=== PATIENT | male | born 1940 | race Caucasian/White ===

== ENCOUNTER 2022-04-07 14:48 | Emergency (ER) | payer OTHER, MEDICARE ==
[~2022-04-07] VITALS: Ht 177.8 cm; Wt 75.9 kg
[~2022-04-07 14:48] MED LIST: CARV3.12 PO
[2022-04-07 14:58] VITALS: BP 152/71
[2022-04-07 15:31] LABS: BASOPHILS # (AUTO) 0.1 X10'3 (0-0.2); BASOPHILS % (AUTO) 0.8 % (0-1); EOSINOPHILS # (AUTO) 0.2 X10'3 (0-0.9); EOSINOPHILS % (AUTO) 2.4 % (0-6); HEMATOCRIT 34.8 % (42.0-52.0); HEMOGLOBIN 11.7 g/dl (14.0-17.9); LYMPHOCYTES # (AUTO) 1.9 X10'3 (1.1-4.8); LYMPHOCYTES % (AUTO) 28.1 % (21-51); MEAN CORPUSCULAR HEMOGLOBIN 30.2 PG (27.0-31.0); MEAN CORPUSCULAR HGB CONC 33.7 g/dL (33.0-36.5); MEAN CORPUSCULAR VOLUME 89.6 FL (78-98); MEAN PLATELET VOLUME 6.7 FL (7.4-10.4); MONOCYTES # (AUTO) 0.8 X10'3 (0-0.9); MONOCYTES % (AUTO) 11.7 % (2-12); NEUTROPHILS # (AUTO) 3.8 X10'3 (1.8-7.7); PLATELET COUNT 242 X10'3 (140-440); RED BLOOD COUNT 3.88 X10'6 (4.70-6.10); RED CELL DISTRIBUTION WIDTH 14.7 % (11.5-14.5); WHITE BLOOD COUNT 6.6 X10'3 (4.5-11.0)
[2022-04-07 15:42] LABS: ALANINE AMINOTRANSFERASE 9 U/L (12-78); ALBUMIN 3.6 G/DL (3.4-5.0); ALBUMIN/GLOBULIN RATIO 0.9 (1.1-1.5); ALKALINE PHOSPHATASE 134 IU/L (46-116); ANION GAP 12 (8-16); ASPARTATE AMINO TRANSFERASE 17 U/L (10-37); BILIRUBIN,TOTAL 0.7 MG/DL (0.1-1.0); BLOOD UREA NITROGEN 13 MG/DL (7-18); BUN/CREATININE RATIO 13.7 (5.4-32.0); CALCIUM 8.7 MG/DL (8.5-10.1); CHLORIDE 105 MMOL/L (99-107); CREATININE 0.95 MG/DL (0.60-1.10); GLUCOSE 111 MG/DL (70-104); LIPASE 80 U/L (73-393); POTASSIUM 3.5 MMOL/L (3.5-5.1); SODIUM 141 MMOL/L (135-145); TOTAL CARBON DIOXIDE 23.8 MMOL/L (24-32); TOTAL PROTEIN 7.7 G/DL (6.4-8.2); eGFR 76 ML/MIN
[2022-04-07 16:16] LABS: CLARITY,URINE CLEAR (Clear); COLOR,URINE YELLOW (Yellow); GLUCOSE, URINE NEGATIVE (Neg); KETONES,URINE NEGATIVE (Neg); LEUKOCYTE ESTERASE ,URINE NEGATIVE (Neg); NITRITES, URINE NEGATIVE (Neg); OCCULT BLOOD,URINE MODERATE (Neg); PROTEIN,URINE NEGATIVE (Neg); UROBILINOGEN,URINE 0.2 E.U/dL (0.2-1.0)
[2022-04-07 16:32] LABS: UA COLLECTION TYPE NON-SPECIFIED
[2022-04-07 16:45] LABS: BACTERIA,URINE NONE SEEN /HPF (Neg); SQUAMOUS EPITHELIAL CELL,UR NONE SEEN /LPF (FEW); WBC,URINE NONE SEEN /HPF (0-4)
== END 2022-04-07 17:20 | disposition left against medical advice (07) ==
LOC: ER 14:49
DX: R10.32 Left lower quadrant pain (principal); R19.7 Diarrhea, unspecified; Z53.21 Procedure and treatment not carried out due to patient leaving prior to being seen by health care provider
CPT/HCPCS: 36415; 80053; 81001; 83690; 85025

== ENCOUNTER 2022-06-24 12:19 | Emergency (ER) | payer OTHER, MEDICARE ==
[~2022-06-24] VITALS: Ht 177.8 cm; Wt 75.9 kg
[2022-06-24 12:49] LABS: BASOPHILS # (AUTO) 0.1 X10'3 (0-0.2); BASOPHILS % (AUTO) 0.6 % (0-1); EOSINOPHILS # (AUTO) 0.2 X10'3 (0-0.9); EOSINOPHILS % (AUTO) 2.3 % (0-6); HEMATOCRIT 29.6 % (42.0-52.0); HEMOGLOBIN 9.9 g/dl (14.0-17.9); LYMPHOCYTES # (AUTO) 2.1 X10'3 (1.1-4.8); LYMPHOCYTES % (AUTO) 23.4 % (21-51); MEAN CORPUSCULAR HEMOGLOBIN 30.6 PG (27.0-31.0); MEAN CORPUSCULAR HGB CONC 33.3 g/dL (33.0-36.5); MEAN CORPUSCULAR VOLUME 91.8 FL (78-98); MEAN PLATELET VOLUME 6.2 FL (7.4-10.4); MONOCYTES # (AUTO) 0.8 X10'3 (0-0.9); MONOCYTES % (AUTO) 9.4 % (2-12); NEUTROPHILS # (AUTO) 5.8 X10'3 (1.8-7.7); NEUTROPHILS % (AUTO) 64.3 % (42-75); PLATELET COUNT 255 X10'3 (140-440); RED BLOOD COUNT 3.22 X10'6 (4.70-6.10); RED CELL DISTRIBUTION WIDTH 15.6 % (11.5-14.5)
[2022-06-24 13:08] LABS: ALANINE AMINOTRANSFERASE 15 U/L (12-78); ALBUMIN 3.4 G/DL (3.4-5.0); ALKALINE PHOSPHATASE 111 IU/L (46-116); ANION GAP 9 (8-16); ASPARTATE AMINO TRANSFERASE 13 U/L (10-37); BILIRUBIN,TOTAL 0.6 MG/DL (0.1-1.0); BLOOD UREA NITROGEN 13 MG/DL (7-18); BUN/CREATININE RATIO 12.4 (5.4-32.0); CALCIUM 8.3 MG/DL (8.5-10.1); CHLORIDE 102 MMOL/L (99-107); CREATININE 1.05 MG/DL (0.60-1.10); GLUCOSE 86 MG/DL (70-104); POTASSIUM 3.5 MMOL/L (3.5-5.1); SODIUM 139 MMOL/L (135-145); TOTAL PROTEIN 6.9 G/DL (6.4-8.2); eGFR 68 ML/MIN
--- NOTE | 2022-06-24 19:39 | NUR ---
Patient received AAOx4 present at bedside. Patient denies acute distress. Labs drawn and sent to lab; will continue with this plan of care.
[2022-06-24 21:06] LABS: HEMATOCRIT 27.4 % (42.0-52.0); HEMOGLOBIN 9.2 g/dl (14.0-17.9); MEAN CORPUSCULAR HEMOGLOBIN 30.5 PG (27.0-31.0); MEAN CORPUSCULAR HGB CONC 33.6 g/dL (33.0-36.5); MEAN CORPUSCULAR VOLUME 90.6 FL (78-98); MEAN PLATELET VOLUME 6.5 FL (7.4-10.4); PLATELET COUNT 239 X10'3 (140-440); RED BLOOD COUNT 3.02 X10'6 (4.70-6.10); RED CELL DISTRIBUTION WIDTH 15.4 % (11.5-14.5)
[2022-06-24 21:43] VITALS: BP 173/79
== END 2022-06-24 22:04 | disposition home or self-care (01) ==
LOC: ER 12:19
DX: D64.9 Anemia, unspecified (principal); K92.1 Melena; I10 Essential (primary) hypertension; E11.9 Type 2 diabetes mellitus without complications; Z90.49 Acquired absence of other specified parts of digestive tract
CPT/HCPCS: 36415; 74176; 80053; 85025; 85027; 86885; 86900; 86901; 93005; 99285

== ENCOUNTER 2022-07-30 05:19 | Inpatient (IN) | payer MEDICARE, OTHER ==
[2022-07-25 13:57] LABS: BASOPHILS % (AUTO) 0.7 % (0-1); EOSINOPHILS # (AUTO) 0.1 X10'3 (0-0.9); LYMPHOCYTES # (AUTO) 0.9 X10'3 (1.1-4.8); LYMPHOCYTES % (AUTO) 15.3 % (21-51); MEAN CORPUSCULAR HEMOGLOBIN 29.9 PG (27.0-31.0); MEAN CORPUSCULAR HGB CONC 32.7 g/dL (33.0-36.5); MEAN CORPUSCULAR VOLUME 91.5 FL (78-98); MEAN PLATELET VOLUME 6.9 FL (7.4-10.4); MONOCYTES # (AUTO) 0.6 X10'3 (0-0.9); MONOCYTES % (AUTO) 9.6 % (2-12); NEUTROPHILS # (AUTO) 4.6 X10'3 (1.8-7.7); NEUTROPHILS % (AUTO) 73.4 % (42-75); PRE OP HEMATOCRIT 33.5 % (42.0-52.0); PRE OP PLATELET COUNT 227 X10'3 (140-440); RED BLOOD COUNT 3.66 X10'6 (4.70-6.10); RED CELL DISTRIBUTION WIDTH 15.7 % (11.5-14.5)
[2022-07-25 14:04] LABS: PRE OP PROTIME 10.5 SECONDS (9.0-12.0)
[2022-07-25 14:05] LABS: ALBUMIN 3.7 G/DL (3.4-5.0); ALBUMIN/GLOBULIN RATIO 1.1 (1.1-1.5); ALKALINE PHOSPHATASE 125 IU/L (46-116); BLOOD UREA NITROGEN 13 MG/DL (7-18); BUN/CREATININE RATIO 12.4 (5.4-32.0); CALCIUM 8.7 MG/DL (8.5-10.1); CHLORIDE 100 MMOL/L (99-107); CREATININE 1.05 MG/DL (0.60-1.10); PRE OP ALT 15 U/L (30-65); PRE OP ANION GAP 5 (8-16); PRE OP AST 10 U/L (10-37); PRE OP BILIRUB, TOTAL 0.9 MG/DL (0.0-1.0); PRE OP GLUCOSE 108 MG/DL (70-104); PRE OP POTASSIUM 3.4 MMOL/L (3.4-5.1); PRE OP SODIUM 135 MMOL/L (135-145); TOTAL CARBON DIOXIDE 30.3 MMOL/L (24-32); TOTAL PROTEIN 7.2 G/DL (6.4-8.2); eGFR 68 ML/MIN
[2022-07-25 14:09] LABS: CLARITY,URINE CLEAR (Clear); COLOR,URINE YELLOW (Yellow); GLUCOSE, URINE NEGATIVE (Neg); KETONES,URINE NEGATIVE (Neg); LEUKOCYTE ESTERASE ,URINE NEGATIVE (Neg); NITRITES, URINE NEGATIVE (Neg); OCCULT BLOOD,URINE MODERATE (Neg); PROTEIN,URINE 30 mg/dl (Neg); UROBILINOGEN,URINE 0.2 E.U/dL (0.2-1.0)
[2022-07-25 14:12] LABS: UA COLLECTION TYPE CLN CATCH MIDSTREAM
[2022-07-25 14:12] LABS: PRE OP HEMOGLOBIN 10.9 g/dL (14.0-17.9)
[2022-07-25 14:18] LABS: BACTERIA,URINE NONE SEEN /HPF (Neg); MUCUS STRANDS NONE SEEN /LPF (Neg); SQUAMOUS EPITHELIAL CELL,UR NONE SEEN /LPF (FEW); WBC,URINE NONE SEEN /HPF (0-4)
[~2022-07-30] VITALS: Ht 177.8 cm; Wt 80.9 kg
[2022-07-30] VITALS (33 sets, daily range): BP systolic 110–169; BP diastolic 57–84
[~2022-07-30 05:19] MED LIST changes: +ASPI-529 PO; -CARV3.12 PO; +CHOL20003; +CILO100T3 PO; +FLO0.4C PO; +LOSA100T57 PO; +MAGN400T56 PO; +OMEP20CA16 PO; +SUCR1TAB PO
[2022-07-30] MEDS ORDERED: famotidine 20mg tablet PO ONE (05:30)
[2022-07-30] MEDS ORDERED: ceFAZolin inj. 2,000 MG in dextrose 5%-water 100 ML IV ONE (05:30)
[2022-07-30] MEDS: ringers solution, lacted 1,000 ML IV SCH ×2 (06:38→21:16)
[2022-07-30] MEDS ORDERED: LIDOcaine 1% (10mg/ml) 2ml vial ONE (06:45)
[2022-07-30] MEDS ORDERED: heparin 10,000 units/1 ML INJ ONE (06:45)
[2022-07-30 07:12] LABS: APTT 27 SECONDS (22-32)
[2022-07-30] MEDS ORDERED: sevoflurane 250ml liquid IH ONE (08:11)
[2022-07-30] MEDS ORDERED: fentaNYL/PF 50MCG/1 ML 2ML syringe ONE (08:15)
[2022-07-30] MEDS ORDERED: ondansetron/PF 4mg/2ml inj IV PRN ×2 (08:30→10:30)
[2022-07-30] MEDS ORDERED: HYDROmorphone/PF 0.2 MG/ML SYRINGE IV PRN (08:30)
[2022-07-30] MEDS ORDERED: morphine 2 MG/ML inj. syringe IV PRN (08:30)
[2022-07-30] MEDS ORDERED: ringers solution, lacted 1,000 ML IV SCH (08:30)
[2022-07-30] MEDS ORDERED: LIDOcaine 2% (20mg/ml) 5ml vial ONE (09:20)
[2022-07-30] MEDS ORDERED: sugammadex 200mg/2ml injection IV ONE (09:20)
[2022-07-30] MEDS ORDERED: ePHEDrine 50MG/ML INJ. ONE (09:20)
[2022-07-30] MEDS ORDERED: ondansetron/PF 4mg/2ml inj ONE (09:20)
[2022-07-30] MEDS ORDERED: propofol inj 20 ML IV ONE (09:20)
[2022-07-30] MEDS ORDERED: heparin 1,000unit/ml 10ml vial 10 ML ONE (09:20)
[2022-07-30] MEDS ORDERED: rocuronium 10mg/ml inj IV ONE (09:20)
[2022-07-30] MEDS ORDERED: dexamethasone sod phosphate 4mg/ml inj. ONE (09:20)
--- NOTE | 2022-07-30 10:00 | NUR ---
Received from OR via gurney, accompanied by Anesthesiologist and report given by Anesthesiologist. PATIENT WAKING UP, C/O PAIN SEE EMAR, V/S WNL, 20G TO MARCELLA, ART LINE RUE, SCD ON, NEUROVASCULAR CHECKS , DRESSING TO LEFT GROIN CDI WITH MODERATE EDEMA.
[2022-07-30] MEDS: HYDROmorphone/PF 0.2 MG/ML SYRINGE IV PRN ×2 (10:05→12:56)
[2022-07-30 10:13] LABS: ISTAT CREATININE 0.9 mg/dL (0.8-1.3); ISTAT HGB 9.5 g/dl (14.0-17.9); ISTAT IONIZED CALCIUM 1.15 mmol/L (1.03-1.32); ISTAT K 3.3 mmol/L (3.5-5.1); POC BUN/CREATININE RATIO 11.1 (5.4-32.0)
[2022-07-30] MEDS ORDERED: hydrALAZINE 20mg/ml inj. IV PRN (10:15)
[2022-07-30] MEDS ORDERED: labetalol 20mg/4ml (5mg/ml) syringe IV ONE (10:28)
[2022-07-30] MEDS ORDERED: HYDROcodone/acetaminophen 10/325mg tab PO PRN ×2 (10:30)
--- NOTE | 2022-07-30 12:57 | NUR ---
LEFT GROIN DRESSING HAS SOME BREAK THROUGH DRAINAGE REINFORCED WITH 4X4 AND HOLDING MANUAL PRESSURE. DR MCDONALD NOTIFIED AND WILL CHECK ON PATIENT AFTER HIS CURRENT SURGICAL CASE HE IS IN ON. DOPPLER PULSES ARE STRONG DISTALLY TO LLE PEDAL AND TIBIAL. MEDS GIVEN FOR PAIN SEE EMAR.
[2022-07-30] MEDS: sucralfate 1 gm tablet PO SCH ×3 (13:00→20:58)
--- NOTE | 2022-07-30 13:04 | NUR ---
DR MCDONALD HERE TO SEE PATIENT, ORDERS TO HOLD MANUAL PRESSURE TO SURGICAL SITE FOR 30MIN AND RECHECK. SURGICAL SIGHT CSM PULSES AND MONITOR FOR BLEEDING.
[2022-07-30] MEDS: ceFAZolin/D5W- 1GM premix 50 ML IV SCH ×2 (15:00→23:36)
--- NOTE | 2022-07-30 15:27 | NUR ---
PATIENT TAKEN TO ROOM WITH ALL BELONGINGS AND HOOKED UP TO MONITORS IN ROOM AND GIVEN CALL LIGHT, REPORT GIVEN TO MELODIE VALVERDE WHO HAS TAKEN OVER PATIENT CARE.
[2022-07-30] MEDS: sod chloride 0.9% 10ml flush syringe IV SCH ×2 (16:00→23:52)
--- NOTE | 2022-07-30 18:40 | NUR ---
Patient in room [facility] 349. I have received report from MADAY VALVERDE and had the opportunity to ask questions and assume patient care.
[2022-07-30] MEDS: cilostazol 50mg tablet PO SCH (20:59)
--- NOTE | 2022-07-30 23:07 | NUR ---
Student Medication Administration: For this medication-pass time frame, all medication were reviewed, dispensed, administered and documented per hospital policy by Willow MOSLEY [facility].
--- NOTE | 2022-07-30 23:30 | NUR ---
Student documentation: I have reviewed and agree with all interventions, assessments performed and documented by BRISEIDA GUPTA [facility].
--- NOTE | 2022-07-31 01:14 | NUR ---
Patient report given, questions answered & plan of care reviewed with RAEANN VALVERDE.
[2022-07-31 06:00] VITALS: BP 149/73
--- NOTE | 2022-07-31 06:44 | NUR ---
Patient in room [facility] 349. I have received report from Slade and had the opportunity to ask questions and assume patient care.
[2022-07-31] MEDS: ceFAZolin/D5W- 1GM premix 50 ML IV SCH (07:59)
[2022-07-31] MEDS ORDERED: tamsulosin 0.4mg capsule PO SCH (08:00)
[2022-07-31] MEDS: sucralfate 1 gm tablet PO SCH (08:00)
[2022-07-31] MEDS ORDERED: aspirin 81mg tab.chew PO SCH (08:00)
[2022-07-31] MEDS ORDERED: losartan 50mg tablet PO SCH (08:00)
[2022-07-31] MEDS ORDERED: cholecalciferol (vitamin D3) 1,000 unit (25mcg) tablet PO SCH (08:00)
[2022-07-31] MEDS ORDERED: magnesium oxide 400mg tablet PO SCH (08:00)
[2022-07-31] MEDS ORDERED: pantoprazole 40mg Tablet.DR PO SCH (08:00)
[2022-07-31] MEDS: cilostazol 50mg tablet PO SCH (08:02)
[2022-07-31] MEDS: sod chloride 0.9% 10ml flush syringe IV SCH (08:08)
[2022-07-31 10:00] VITALS: BP 142/72
--- NOTE | 2022-08-05 13:26 | NUR ---
Case Management DC follow up: Left VM with name ,telephone number, and reason for call.
== END 2022-07-31 11:14 | disposition home or self-care (01) | DRG 254 ==
LOC: UNDOADMIN 05:19 → PAS IN 05:19 → SUR 3N 16:26
PROVIDERS: ADMIT Surgery; ATTEND Surgery
PROC: 04BL0ZZ Excision of Left Femoral Artery, Open Approach (ICD-10-PCS; principal; 2022-07-30 08:41)
DX: I72.4 Aneurysm of artery of lower extremity (principal); I25.10 Atherosclerotic heart disease of native coronary artery without angina pectoris; E78.00 Pure hypercholesterolemia, unspecified; I10 Essential (primary) hypertension; N40.0 Benign prostatic hyperplasia without lower urinary tract symptoms; K21.9 Gastro-esophageal reflux disease without esophagitis; R73.03 Prediabetes; Z80.9 Family history of malignant neoplasm, unspecified; Z86.79 Personal history of other diseases of the circulatory system
CPT/HCPCS: 36415; 80047; 80053; 81001; 82948; 85025; 85610; 85730; 86885; 86900; 86901; 87081; A4618; A6449; A7000; C1758; G0378; J0360; J0690; J1100; J1170; J1644; J2270; J2405; J2704; J3010; J3490; J7040; J7060; J7120; L8670

== ENCOUNTER 2022-08-01 20:28 | Observation (INO) | payer MEDICARE, OTHER ==
[~2022-08-01] VITALS: Ht 177.8 cm; Wt 75.9 kg
[2022-08-01] MEDS ORDERED: normal saline 1000ml 1,000 ML IV ONE (21:00)
[2022-08-01 21:30] LABS: BASOPHILS # (AUTO) 0.1 X10'3 (0-0.2); BASOPHILS % (AUTO) 0.6 % (0-1); EOSINOPHILS # (AUTO) 0.1 X10'3 (0-0.9); EOSINOPHILS % (AUTO) 1.1 % (0-6); HEMOGLOBIN 8.9 g/dl (14.0-17.9); LYMPHOCYTES # (AUTO) 1.8 X10'3 (1.1-4.8); MEAN CORPUSCULAR HEMOGLOBIN 30.2 PG (27.0-31.0); MEAN CORPUSCULAR VOLUME 91.4 FL (78-98); MONOCYTES % (AUTO) 11.8 % (2-12); NEUTROPHILS # (AUTO) 5.5 X10'3 (1.8-7.7); NEUTROPHILS % (AUTO) 65.5 % (42-75); PLATELET COUNT 283 X10'3 (140-440); RED BLOOD COUNT 2.95 X10'6 (4.70-6.10); RED CELL DISTRIBUTION WIDTH 15.6 % (11.5-14.5); WHITE BLOOD COUNT 8.4 X10'3 (4.5-11.0)
[2022-08-01 21:42] LABS: ALANINE AMINOTRANSFERASE 13 U/L (12-78); ALBUMIN 3.5 G/DL (3.4-5.0); ALKALINE PHOSPHATASE 111 IU/L (46-116); ANION GAP 11 (8-16); ASPARTATE AMINO TRANSFERASE 13 U/L (10-37); BILIRUBIN,TOTAL 0.6 MG/DL (0.1-1.0); BLOOD UREA NITROGEN 16 MG/DL (7-18); BUN/CREATININE RATIO 11.2 (5.4-32.0); CALCIUM 8.1 MG/DL (8.5-10.1); CHLORIDE 101 MMOL/L (99-107); CREATININE 1.43 MG/DL (0.60-1.10); GLUCOSE 106 MG/DL (70-104); POTASSIUM 3.3 MMOL/L (3.5-5.1); SODIUM 137 MMOL/L (135-145); TOTAL CARBON DIOXIDE 24.8 MMOL/L (24-32); TOTAL PROTEIN 6.9 G/DL (6.4-8.2); eGFR 47 ML/MIN
[2022-08-01 21:53] LABS: APTT 30 SECONDS (22-32)
[2022-08-01] MEDS ORDERED: iohexol 300mg/ml 100ml inj. ONE (22:35)
[2022-08-02] VITALS (7 sets, daily range): BP systolic 117–160; BP diastolic 55–72
[2022-08-02] MEDS ORDERED: traMADol 50MG tablet PO ONE (00:45)
[2022-08-02] MEDS ORDERED: normal saline 1000ml 1,000 ML IV SCH (00:50)
[2022-08-02] MEDS ORDERED: magnesium Cl slow-release 64mg tablet PO PRN (00:50)
[2022-08-02] MEDS ORDERED: morphine 2 MG/ML inj. syringe IV PRN (00:50)
[2022-08-02] MEDS ORDERED: magnesium 4gm in 100ml NS 100 ML IV PRN (00:50)
[2022-08-02] MEDS ORDERED: ondansetron/PF 4mg/2ml inj IV PRN (00:50)
[2022-08-02] MEDS ORDERED: acetaminophen 325mg tablet PO PRN ×2 (00:50)
[2022-08-02] MEDS ORDERED: potassium Cl 20 mEq SR tablet PO PRN (00:50)
[2022-08-02] MEDS ORDERED: potassium Cl 40MEQ/1/2NS 520ml 520 ML IV PRN (00:50)
[2022-08-02 01:44] LABS: CLARITY,URINE CLEAR (Clear); COLOR,URINE YELLOW (Yellow); GLUCOSE, URINE NEGATIVE (Neg); KETONES,URINE NEGATIVE (Neg); LEUKOCYTE ESTERASE ,URINE NEGATIVE (Neg); NITRITES, URINE NEGATIVE (Neg); OCCULT BLOOD,URINE TRACE-INTACT (Neg); PH,URINE 6.5 (4.8-8.0); PROTEIN,URINE NEGATIVE (Neg); UROBILINOGEN,URINE 0.2 E.U/dL (0.2-1.0)
--- NOTE | 2022-08-02 01:45 | NUR ---
PAGER ID: [phone] MESSAGE: Slade Gordon, in ED room 4 continues to bleed from sx site. If you want a femostop used to apply pressure, I need an order w/ amount of pressure to use
[2022-08-02 01:47] LABS: UA COLLECTION TYPE URINAL
[2022-08-02 01:54] LABS: BACTERIA,URINE NONE SEEN /HPF (Neg); MUCUS STRANDS FEW /LPF (Neg); RBC,URINE 0-2 /HPF (0-2); SQUAMOUS EPITHELIAL CELL,UR FEW /LPF (FEW); WBC,URINE 0-4 /HPF (0-4)
--- NOTE | 2022-08-02 02:11 | NUR ---
Dr. Prado contacted about use of femstop per recommendation of Dr. Hurt. Dr. Prado does not want a femostop used at this time. Pt dressing changed and pressure applied with sand weights 5 lbs from ICU. H and H ordered. Blood pressure 128/72. Addendum: 08/02/22 at 0216 by LSAATZER No new order for H & H
[2022-08-02 02:18] LABS: % IRON SATURATION 9 % (11-46); IRON 20 UG/DL (53-167); TOTAL IRON BINDING CAPACITY 224 UG/DL (259-388)
[2022-08-02] MEDS ORDERED: TRAM50TA2 PO (02:52)
[2022-08-02] MEDS ORDERED: DOCU-342 PO (02:52)
[2022-08-02] MEDS ORDERED: ONDA4TAB12 SL (02:52)
[2022-08-02] MEDS ORDERED: BUPR1PAT10 TD (02:52)
--- NOTE | 2022-08-02 03:31 | NUR ---
JOHN WAS PAGED AT [phone]
[2022-08-02] MEDS ORDERED: BUPRENORPHINE TP SCH (03:50)
[2022-08-02] MEDS: HYDROcodone/acetaminophen 5mg/325mg tablet PO PRN (04:40)
[2022-08-02 06:06] LABS: BASOPHILS % (AUTO) 0.5 % (0-1); EOSINOPHILS # (AUTO) 0.1 X10'3 (0-0.9); EOSINOPHILS % (AUTO) 1.5 % (0-6); HEMATOCRIT 22.4 % (42.0-52.0); HEMOGLOBIN 7.7 g/dl (14.0-17.9); LYMPHOCYTES # (AUTO) 1.5 X10'3 (1.1-4.8); LYMPHOCYTES % (AUTO) 20.7 % (21-51); MEAN CORPUSCULAR HEMOGLOBIN 30.7 PG (27.0-31.0); MEAN CORPUSCULAR HGB CONC 34.3 g/dL (33.0-36.5); MEAN CORPUSCULAR VOLUME 89.6 FL (78-98); MEAN PLATELET VOLUME 7.2 FL (7.4-10.4); MONOCYTES # (AUTO) 0.8 X10'3 (0-0.9); MONOCYTES % (AUTO) 11.1 % (2-12); NEUTROPHILS # (AUTO) 4.8 X10'3 (1.8-7.7); NEUTROPHILS % (AUTO) 66.2 % (42-75); PLATELET COUNT 239 X10'3 (140-440); WHITE BLOOD COUNT 7.2 X10'3 (4.5-11.0)
--- NOTE | 2022-08-02 06:39 | NUR ---
patient asleep, respirations regular.Unit of prbc running, no adverse reaction noted.
--- NOTE | 2022-08-02 07:07 | NUR ---
unit of prbc finished.No adverse reaction.Vital signs stable.
[2022-08-02] MEDS: K and/or MAG REPLACEMENT MC SCH ×2 (08:00→20:00)
[2022-08-02] MEDS ORDERED: losartan 50mg tablet PO SCH ×2 (08:00→09:07)
[2022-08-02] MEDS: tamsulosin 0.4mg capsule PO SCH (08:25)
[2022-08-02] MEDS: pantoprazole 40mg Tablet.DR PO SCH (08:26)
--- NOTE | 2022-08-02 08:30 | NUR ---
Paged Dr. Pulliam regarding diet order.
[2022-08-02] MEDS: cilostazol 50mg tablet PO SCH ×2 (08:38→19:31)
--- NOTE | 2022-08-02 09:05 | NUR ---
Dr. Pulliam at bedside.Patient to be kept NPO for now.
--- NOTE | 2022-08-02 09:07 | NUR ---
Pressure dressing to left groin changed,no noted active bleeding.Dr. Pulliam at bedside.
[2022-08-02 09:46] LABS: BASOPHILS % (AUTO) 0.6 % (0-1); EOSINOPHILS # (AUTO) 0.2 X10'3 (0-0.9); EOSINOPHILS % (AUTO) 2.7 % (0-6); HEMOGLOBIN 8.7 g/dl (14.0-17.9); LYMPHOCYTES # (AUTO) 1.5 X10'3 (1.1-4.8); LYMPHOCYTES % (AUTO) 23.8 % (21-51); MEAN CORPUSCULAR HGB CONC 34.8 g/dL (33.0-36.5); MEAN CORPUSCULAR VOLUME 88.9 FL (78-98); MEAN PLATELET VOLUME 6.8 FL (7.4-10.4); MONOCYTES # (AUTO) 0.8 X10'3 (0-0.9); MONOCYTES % (AUTO) 12.9 % (2-12); NEUTROPHILS # (AUTO) 3.8 X10'3 (1.8-7.7); PLATELET COUNT 224 X10'3 (140-440); RED BLOOD COUNT 2.82 X10'6 (4.70-6.10); RED CELL DISTRIBUTION WIDTH 14.9 % (11.5-14.5); WHITE BLOOD COUNT 6.3 X10'3 (4.5-11.0)
[2022-08-02 10:06] LABS: ALBUMIN 2.9 G/DL (3.4-5.0); ANION GAP 8 (8-16); BLOOD UREA NITROGEN 12 MG/DL (7-18); BUN/CREATININE RATIO 11.7 (5.4-32.0); CALCIUM 7.5 MG/DL (8.5-10.1); CHLORIDE 103 MMOL/L (99-107); CREATININE 1.03 MG/DL (0.60-1.10); GLUCOSE 94 MG/DL (70-104); POTASSIUM 3.1 MMOL/L (3.5-5.1); SODIUM 137 MMOL/L (135-145); TOTAL CARBON DIOXIDE 26.5 MMOL/L (24-32); eGFR 69 ML/MIN
[2022-08-02] MEDS: potassium Cl 20 mEq SR tablet PO PRN ×2 (10:19→19:31)
--- NOTE | 2022-08-02 12:02 | NUR ---
Dr. Chopra ordered to ambulate patient and to check for bleeding,patient able to ambulate without discomfort.Will monitor for bleeding.
--- NOTE | 2022-08-02 18:10 | NUR ---
Patient in room PCU 3013. I have received report from Dora VALVERDE and had the opportunity to ask questions and assume patient care.
--- NOTE | 2022-08-02 20:30 | NUR ---
His lower left leg has edema and is shiny. Addendum: 08/03/22 at 0142 by Deepthi Chery RN Amended: Links added.
[2022-08-02] MEDS ORDERED: temazepam 15mg capsule PO PRN (21:00)
--- NOTE | 2022-08-03 01:44 | NUR ---
Student documentation: I have reviewed and agree with all interventions, assessments performed and documented by Ashkan Childs. 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 The pupils are also sluggish to respond and are 2mm size.
--- NOTE | 2022-08-03 01:48 | NUR ---
Student Medication Administration: For this medication-pass time frame, all medication were reviewed, dispensed, administered and documented per hospital policy by Ashkan Childs.
[2022-08-03] MEDS: potassium Cl 20 mEq SR tablet PO PRN (01:51)
[2022-08-03 06:00] VITALS: BP 151/80
--- NOTE | 2022-08-03 06:08 | NUR ---
Problems reprioritized. Patient report given, questions answered & plan of care reviewed with Dora VALVERDE.
[2022-08-03 06:34] LABS: BASOPHILS # (AUTO) 0.1 X10'3 (0-0.2); BASOPHILS % (AUTO) 0.8 % (0-1); EOSINOPHILS # (AUTO) 0.2 X10'3 (0-0.9); EOSINOPHILS % (AUTO) 3.4 % (0-6); HEMATOCRIT 25.1 % (42.0-52.0); HEMOGLOBIN 8.6 g/dl (14.0-17.9); LYMPHOCYTES # (AUTO) 1.6 X10'3 (1.1-4.8); LYMPHOCYTES % (AUTO) 24.5 % (21-51); MEAN CORPUSCULAR HEMOGLOBIN 30.5 PG (27.0-31.0); MEAN CORPUSCULAR HGB CONC 34.1 g/dL (33.0-36.5); MEAN CORPUSCULAR VOLUME 89.6 FL (78-98); MEAN PLATELET VOLUME 6.9 FL (7.4-10.4); MONOCYTES # (AUTO) 0.7 X10'3 (0-0.9); MONOCYTES % (AUTO) 10.9 % (2-12); NEUTROPHILS # (AUTO) 3.9 X10'3 (1.8-7.7); NEUTROPHILS % (AUTO) 60.4 % (42-75); PLATELET COUNT 246 X10'3 (140-440); RED CELL DISTRIBUTION WIDTH 14.7 % (11.5-14.5); WHITE BLOOD COUNT 6.4 X10'3 (4.5-11.0)
--- NOTE | 2022-08-03 06:35 | NUR ---
received report from matthew maria
[2022-08-03 06:43] LABS: ALANINE AMINOTRANSFERASE 12 U/L (12-78); ALBUMIN 2.8 G/DL (3.4-5.0); ALKALINE PHOSPHATASE 95 IU/L (46-116); ANION GAP 6 (8-16); ASPARTATE AMINO TRANSFERASE 17 U/L (10-37); BILIRUBIN,TOTAL 1.3 MG/DL (0.1-1.0); BLOOD UREA NITROGEN 8 MG/DL (7-18); BUN/CREATININE RATIO 8.6 (5.4-32.0); CALCIUM 7.6 MG/DL (8.5-10.1); CHLORIDE 104 MMOL/L (99-107); CREATININE 0.93 MG/DL (0.60-1.10); GLUCOSE 100 MG/DL (70-104); POTASSIUM 3.7 MMOL/L (3.5-5.1); SODIUM 137 MMOL/L (135-145); TOTAL CARBON DIOXIDE 26.9 MMOL/L (24-32); TOTAL PROTEIN 5.7 G/DL (6.4-8.2); eGFR 78 ML/MIN
[2022-08-03] MEDS: K and/or MAG REPLACEMENT MC SCH (08:00)
[2022-08-03] MEDS: cilostazol 50mg tablet PO SCH (08:38)
[2022-08-03] MEDS: tamsulosin 0.4mg capsule PO SCH (08:38)
[2022-08-03] MEDS: HYDROcodone/acetaminophen 5mg/325mg tablet PO PRN (08:39)
[2022-08-03] MEDS: pantoprazole 40mg Tablet.DR PO SCH (08:39)
[2022-08-03 10:24] VITALS: BP 143/76
[2022-08-03 11:41] LABS: BASOPHILS % (AUTO) 0.5 % (0-1); EOSINOPHILS # (AUTO) 0.2 X10'3 (0-0.9); EOSINOPHILS % (AUTO) 2.2 % (0-6); HEMOGLOBIN 8.7 g/dl (14.0-17.9); LYMPHOCYTES # (AUTO) 1.3 X10'3 (1.1-4.8); LYMPHOCYTES % (AUTO) 17.2 % (21-51); MEAN CORPUSCULAR HEMOGLOBIN 30.4 PG (27.0-31.0); MEAN CORPUSCULAR HGB CONC 33.5 g/dL (33.0-36.5); MEAN PLATELET VOLUME 6.7 FL (7.4-10.4); MONOCYTES # (AUTO) 0.6 X10'3 (0-0.9); MONOCYTES % (AUTO) 8.7 % (2-12); NEUTROPHILS # (AUTO) 5.2 X10'3 (1.8-7.7); NEUTROPHILS % (AUTO) 71.4 % (42-75); PLATELET COUNT 253 X10'3 (140-440); RED BLOOD COUNT 2.86 X10'6 (4.70-6.10); RED CELL DISTRIBUTION WIDTH 14.8 % (11.5-14.5); WHITE BLOOD COUNT 7.3 X10'3 (4.5-11.0)
--- NOTE | 2022-08-03 14:34 | NUR ---
pt d/c with instructions, understanding of instructions and with all belongings in wheelchair accompanied by nursing staff and to private vehicle to f/u w/surgeon
== END 2022-08-03 14:15 | disposition home or self-care (01) ==
LOC: ER 20:30 → ED HOLD 08-02 00:56 → PCU 3S 08-02 13:24
PROVIDERS: ADMIT Internal Medicine; ATTEND Family Medicine
DX: M79.81 Nontraumatic hematoma of soft tissue (principal); I12.9 Hypertensive chronic kidney disease with stage 1 through stage 4 chronic kidney disease, or unspecified chronic kidney disease; N18.30 Chronic kidney disease, stage 3 unspecified; D63.1 Anemia in chronic kidney disease; I72.4 Aneurysm of artery of lower extremity; D64.89 Other specified anemias; N40.0 Benign prostatic hyperplasia without lower urinary tract symptoms; E11.22 Type 2 diabetes mellitus with diabetic chronic kidney disease; E11.51 Type 2 diabetes mellitus with diabetic peripheral angiopathy without gangrene; I51.7 Cardiomegaly; Z79.82 Long term (current) use of aspirin; Z79.899 Other long term (current) drug therapy
CPT/HCPCS: 36415; 36430; 71045; 73701; 80048; 80053; 81001; 83540; 83550; 85025; 85610; 85730; 86885; 86900; 86901; 86920; 93005; 96360; 96361; 97116; 97161; 97530; 99285; G0378; J3490; J7030; J7040; P9016; Q9967; A6258; A6449

== ENCOUNTER 2023-02-22 22:29 | Emergency (ER) | payer OTHER, MEDICARE ==
[~2023-02-22] VITALS: Ht 177.8 cm; Wt 75.0 kg
[~2023-02-22 22:29] MED LIST changes: +BUPR1PAT10 TD; +DOCU-391 PO; -LOSA100T57 PO; +LOSA100T58 PO; +ONDA4TAB12 SL; +TRAM50TA2 PO
[2023-02-22] MEDS ORDERED: normal saline 1000ml 1,000 ML IV ONE (23:40)
[2023-02-22] MEDS ORDERED: magnesium 2GM in 50ml NS 50 ML IV ONE (23:40)
[2023-02-23 00:28] LABS: BASOPHILS % (AUTO) 0.6 % (0-1); EOSINOPHILS # (AUTO) 0.1 X10'3 (0-0.9); HEMATOCRIT 33.6 % (42.0-52.0); HEMOGLOBIN 11.4 g/dl (14.0-17.9); LYMPHOCYTES # (AUTO) 1.3 X10'3 (1.1-4.8); LYMPHOCYTES % (AUTO) 18.2 % (21-51); MEAN CORPUSCULAR HEMOGLOBIN 30.8 PG (27.0-31.0); MEAN CORPUSCULAR VOLUME 90.7 FL (78-98); MEAN PLATELET VOLUME 7.4 FL (7.4-10.4); MONOCYTES # (AUTO) 0.7 X10'3 (0-0.9); MONOCYTES % (AUTO) 10.3 % (2-12); NEUTROPHILS # (AUTO) 4.9 X10'3 (1.8-7.7); NEUTROPHILS % (AUTO) 68.9 % (42-75); PLATELET COUNT 213 X10'3 (140-440); RED CELL DISTRIBUTION WIDTH 15.8 % (11.5-14.5); WHITE BLOOD COUNT 7.1 X10'3 (4.5-11.0)
--- NOTE | 2023-02-23 00:39 | NUR ---
[place] [phone]
[2023-02-23 00:46] LABS: ALANINE AMINOTRANSFERASE 12 U/L (12-78); ALBUMIN 3.8 G/DL (3.4-5.0); ALBUMIN/GLOBULIN RATIO 1.4 (1.1-1.5); ALKALINE PHOSPHATASE 154 IU/L (46-116); ANION GAP 8 (8-16); ASPARTATE AMINO TRANSFERASE 14 U/L (10-37); BLOOD UREA NITROGEN 18 MG/DL (7-18); BUN/CREATININE RATIO 14.4 (10.0-20.0); CALCIUM 8.7 MG/DL (8.5-10.1); CHLORIDE 105 MMOL/L (99-107); CREATININE 1.25 MG/DL (0.60-1.10); GLUCOSE 167 MG/DL (70-104); POTASSIUM 3.6 MMOL/L (3.5-5.1); SODIUM 139 MMOL/L (135-145); TOTAL CARBON DIOXIDE 26.3 MMOL/L (24-32); TOTAL PROTEIN 6.6 G/DL (6.4-8.2); eGFR 55 ML/MIN
[2023-02-23] MEDS ORDERED: metoprolol succinate 25mg (24-HOUR) SR. Tablet PO ONE (01:40)
[2023-02-23 02:06] VITALS: BP 159/83
[2023-02-24] MEDS ORDERED: NAPR220T67 PO (17:40)
[2023-02-24] MEDS ORDERED: APIX5TAB3 PO (17:40)
[2023-02-24] MEDS ORDERED: CARB15DR EACHEYE (17:40)
== END 2023-02-23 02:07 | disposition home or self-care (01) ==
LOC: ER 22:30
DX: I47.1 Supraventricular tachycardia (principal); I10 Essential (primary) hypertension; Z79.899 Other long term (current) drug therapy
CPT/HCPCS: 36415; 71045; 80053; 83880; 84439; 84443; 84484; 85025; 93005; 96365; 96366; 99285; J3475; J7030

== ENCOUNTER 2023-02-24 10:02 | Emergency (ER) | payer OTHER, MEDICARE ==
[~2023-02-24] VITALS: Ht 177.8 cm; Wt 79.2 kg
[2023-02-24 10:22] LABS: BASOPHILS % (AUTO) 0.4 % (0-1); EOSINOPHILS # (AUTO) 0.1 X10'3 (0-0.9); EOSINOPHILS % (AUTO) 1.9 % (0-6); HEMATOCRIT 35.5 % (42.0-52.0); HEMOGLOBIN 11.7 g/dl (14.0-17.9); LYMPHOCYTES # (AUTO) 2.1 X10'3 (1.1-4.8); LYMPHOCYTES % (AUTO) 29.4 % (21-51); MEAN CORPUSCULAR VOLUME 90.9 FL (78-98); MEAN PLATELET VOLUME 7.1 FL (7.4-10.4); MONOCYTES # (AUTO) 0.6 X10'3 (0-0.9); MONOCYTES % (AUTO) 8.1 % (2-12); NEUTROPHILS # (AUTO) 4.4 X10'3 (1.8-7.7); NEUTROPHILS % (AUTO) 60.2 % (42-75); PLATELET COUNT 209 X10'3 (140-440); RED BLOOD COUNT 3.91 X10'6 (4.70-6.10); RED CELL DISTRIBUTION WIDTH 15.9 % (11.5-14.5); WHITE BLOOD COUNT 7.2 X10'3 (4.5-11.0)
[2023-02-24 10:35] LABS: ALANINE AMINOTRANSFERASE 13 U/L (12-78); ALBUMIN 4.1 G/DL (3.4-5.0); ALBUMIN/GLOBULIN RATIO 1.4 (1.1-1.5); ALKALINE PHOSPHATASE 156 IU/L (46-116); ANION GAP 9 (8-16); ASPARTATE AMINO TRANSFERASE 17 U/L (10-37); BILIRUBIN,TOTAL 1.3 MG/DL (0.1-1.0); BLOOD UREA NITROGEN 14 MG/DL (7-18); BUN/CREATININE RATIO 12.6 (10.0-20.0); CALCIUM 8.4 MG/DL (8.5-10.1); CHLORIDE 105 MMOL/L (99-107); CREATININE 1.11 MG/DL (0.60-1.10); GLUCOSE 145 MG/DL (70-104); POTASSIUM 3.3 MMOL/L (3.5-5.1); SODIUM 140 MMOL/L (135-145); TOTAL CARBON DIOXIDE 25.7 MMOL/L (24-32); eGFR 63 ML/MIN
[2023-02-24 10:43] LABS: MAGNESIUM 1.9 MG/DL (1.5-2.4)
[2023-02-24 12:20] VITALS: BP 148/93
[2023-02-24] MEDS ORDERED: CARB15DR EACHEYE (17:40)
[2023-02-24] MEDS ORDERED: APIX5TAB3 PO (17:40)
[2023-02-24] MEDS ORDERED: NAPR220T67 PO (17:40)
[2023-02-26] MEDS ORDERED: AMIO200T67 PO (11:24)
[2023-02-26] MEDS ORDERED: HYDR-3965 PO (11:48)
== END 2023-02-24 12:32 | disposition home or self-care (01) ==
LOC: ER 10:03
DX: I47.1 Supraventricular tachycardia (principal); I10 Essential (primary) hypertension; D64.9 Anemia, unspecified; Z79.899 Other long term (current) drug therapy; Z79.82 Long term (current) use of aspirin
CPT/HCPCS: 36415; 71045; 80053; 83735; 83880; 84484; 85025; 85610; 93005; 99285

== ENCOUNTER 2023-08-12 13:58 | Emergency (ER) | payer OTHER, MEDICARE ==
[~2023-08-12] VITALS: Ht 177.8 cm; Wt 80.0 kg
[~2023-08-12 13:58] MED LIST changes: +AMIO200T67 PO; +APIX5TAB3 PO; -ASPI-529 PO; +CARB15DR EACHEYE; -DOCU-391 PO; +NAPR220T67 PO; -ONDA4TAB12 SL; -SUCR1TAB PO; -TRAM50TA2 PO
[2023-08-12 14:00] VITALS: TEMP 97.5
[2023-08-12 14:49] LABS: BASOPHILS % (AUTO) 0.5 % (0-1); EOSINOPHILS # (AUTO) 0.1 X10'3 (0-0.9); HEMATOCRIT 32.7 % (42.0-52.0); HEMOGLOBIN 10.7 g/dl (14.0-17.9); LYMPHOCYTES # (AUTO) 1.2 X10'3 (1.1-4.8); LYMPHOCYTES % (AUTO) 19.6 % (21-51); MEAN CORPUSCULAR HEMOGLOBIN 28.9 PG (27.0-31.0); MEAN CORPUSCULAR HGB CONC 32.8 g/dL (33.0-36.5); MEAN CORPUSCULAR VOLUME 88.1 FL (78-98); MEAN PLATELET VOLUME 7.2 FL (7.4-10.4); MONOCYTES # (AUTO) 0.5 X10'3 (0-0.9); MONOCYTES % (AUTO) 8.9 % (2-12); NEUTROPHILS # (AUTO) 4.2 X10'3 (1.8-7.7); PLATELET COUNT 201 X10'3 (140-440); RED BLOOD COUNT 3.72 X10'6 (4.70-6.10); RED CELL DISTRIBUTION WIDTH 16.2 % (11.5-14.5)
[2023-08-12 15:09] LABS: ALANINE AMINOTRANSFERASE 8 U/L (12-78); ALBUMIN 3.2 G/DL (3.4-5.0); ALKALINE PHOSPHATASE 126 IU/L (46-116); ANION GAP 10 (8-16); ASPARTATE AMINO TRANSFERASE 13 U/L (10-37); BILIRUBIN,TOTAL 0.9 MG/DL (0.1-1.0); BLOOD UREA NITROGEN 14 MG/DL (7-18); BUN/CREATININE RATIO 12.6 (10.0-20.0); CALCIUM 8.4 MG/DL (8.5-10.1); CHLORIDE 105 MMOL/L (99-107); CREATININE 1.11 MG/DL (0.60-1.10); GLUCOSE 122 MG/DL (70-104); POTASSIUM 3.5 MMOL/L (3.5-5.1); SODIUM 140 MMOL/L (135-145); TOTAL CARBON DIOXIDE 24.8 MMOL/L (24-32); TOTAL PROTEIN 6.4 G/DL (6.4-8.2); eCRCL 52 ML/MIN; eGFR 63 ML/MIN
[2023-08-12 15:18] LABS: PRO BRAIN NATRIURETIC PEPTIDE 281 PG/ML (0-450)
[2023-08-12 16:26] VITALS: BP 131/80; PULSE 71; RESP 16; O2SAT 94
== END 2023-08-12 16:27 | disposition home or self-care (01) ==
LOC: ER 13:59
DX: R00.2 Palpitations (principal); I10 Essential (primary) hypertension; Z86.2 Personal history of diseases of the blood and blood-forming organs and certain disorders involving the immune mechanism; Z79.899 Other long term (current) drug therapy
CPT/HCPCS: 36415; 71045; 80053; 83880; 84484; 85025; 93005; 99285

== ENCOUNTER 2023-12-12 18:58 | Emergency (ER) | payer OTHER, MEDICARE ==
[~2023-12-12] VITALS: Ht 177.8 cm; Wt 76.0 kg
[~2023-12-12 18:58] MED LIST changes: -AMIO200T67 PO; +METO-395 PO; -NAPR220T67 PO; +ROSU20TA2 PO; +SYN0.088T PO
[2023-12-12 19:04] VITALS: TEMP 98.6
[2023-12-12] MEDS ORDERED: TETanus/Pertussis (Acell)/Diphther VAC/PF (Tdap-Adult) 0.5ml syringe IMVAC ONE (19:05)
[2023-12-12] MEDS ORDERED: silver sulfadiazine cream 50gm TP ONE (19:05)
[2023-12-12 20:02] LABS: ANION GAP 10 (8-16); BASOPHILS % (AUTO) 0.6 % (0-1); BLOOD UREA NITROGEN 12 MG/DL (7-18); BUN/CREATININE RATIO 9.1 (10.0-20.0); CALCIUM 8.1 MG/DL (8.5-10.1); CHLORIDE 106 MMOL/L (99-107); CREATININE 1.32 MG/DL (0.60-1.10); EOSINOPHILS # (AUTO) 0.1 X10'3 (0-0.9); EOSINOPHILS % (AUTO) 1.4 % (0-6); GLUCOSE 112 MG/DL (70-104); HEMATOCRIT 28.3 % (42.0-52.0); HEMOGLOBIN 9.3 g/dl (14.0-17.9); LYMPHOCYTES # (AUTO) 1.1 X10'3 (1.1-4.8); LYMPHOCYTES % (AUTO) 19.4 % (21-51); MAGNESIUM 1.5 MG/DL (1.5-2.4); MEAN CORPUSCULAR HEMOGLOBIN 28.6 PG (27.0-31.0); MEAN CORPUSCULAR HGB CONC 32.9 g/dL (33.0-36.5); MEAN CORPUSCULAR VOLUME 86.9 FL (78-98); MEAN PLATELET VOLUME 7.6 FL (7.4-10.4); MONOCYTES # (AUTO) 0.6 X10'3 (0-0.9); MONOCYTES % (AUTO) 9.9 % (2-12); NEUTROPHILS # (AUTO) 3.9 X10'3 (1.8-7.7); NEUTROPHILS % (AUTO) 68.7 % (42-75); PLATELET COUNT 204 X10'3 (140-440); POTASSIUM 3.8 MMOL/L (3.5-5.1); PRO BRAIN NATRIURETIC PEPTIDE 416 PG/ML (0-450); RED BLOOD COUNT 3.26 X10'6 (4.70-6.10); RED CELL DISTRIBUTION WIDTH 16.8 % (11.5-14.5); SODIUM 140 MMOL/L (135-145); WHITE BLOOD COUNT 5.6 X10'3 (4.5-11.0); eCRCL 44 ML/MIN; eGFR 52 ML/MIN
[2023-12-12 21:13] LABS: ANISOCYTOSIS 1+; PLATELET ESTIMATE NORMAL; TOTAL CELLS COUNTED 100
[2023-12-12 21:14] LABS: HYPERSEGMENTED NEUTROPHILS 2+
[2023-12-12 21:18] LABS: BURR CELLS 1+; ELLIPTOCYTES 1+; POIKILOCYTOSIS 2+; SCHISTOCYTES FEW
[2023-12-12] MEDS ORDERED: normal saline 1000ML IV soln IVB ONE (21:30)
[2023-12-12 22:08] LABS: BASOPHILS % (AUTO) 0.6 % (0-1); EOSINOPHILS # (AUTO) 0.1 X10'3 (0-0.9); EOSINOPHILS % (AUTO) 0.9 % (0-6); HEMATOCRIT 27.6 % (42.0-52.0); HEMOGLOBIN 9.1 g/dl (14.0-17.9); LYMPHOCYTES # (AUTO) 1.3 X10'3 (1.1-4.8); MEAN CORPUSCULAR HEMOGLOBIN 28.6 PG (27.0-31.0); MEAN CORPUSCULAR HGB CONC 32.8 g/dL (33.0-36.5); MEAN CORPUSCULAR VOLUME 87.2 FL (78-98); MEAN PLATELET VOLUME 7.8 FL (7.4-10.4); MONOCYTES # (AUTO) 0.7 X10'3 (0-0.9); MONOCYTES % (AUTO) 10.4 % (2-12); NEUTROPHILS # (AUTO) 4.9 X10'3 (1.8-7.7); NEUTROPHILS % (AUTO) 69.1 % (42-75); PLATELET COUNT 192 X10'3 (140-440); RED BLOOD COUNT 3.16 X10'6 (4.70-6.10); RED CELL DISTRIBUTION WIDTH 16.3 % (11.5-14.5); WHITE BLOOD COUNT 7.1 X10'3 (4.5-11.0)
[2023-12-12 22:14] LABS: INR 1.1 INR; PROTHROMBIN TIME 12.1 SECONDS (9.0-12.0)
[2023-12-12 22:21] LABS: LIPASE 16 U/L (16-77)
[2023-12-12 22:25] LABS: ETHANOL < 10 MG/DL (<10)
[2023-12-12 22:28] VITALS: BP 171/87; PULSE 69; RESP 17; O2SAT 98
== END 2023-12-12 22:21 | disposition home or self-care (01) ==
LOC: ER 18:58
DX: R00.2 Palpitations (principal); R06.02 Shortness of breath; I10 Essential (primary) hypertension; Z90.49 Acquired absence of other specified parts of digestive tract; Z88.8 Allergy status to other drugs, medicaments and biological substances; Z79.899 Other long term (current) drug therapy; Z79.2 Long term (current) use of antibiotics; Z98.890 Other specified postprocedural states
CPT/HCPCS: 36415; 71045; 80048; 80320; 82140; 83690; 83735; 83880; 84484; 85007; 85025; 85610; 93005; 99285